=== PATIENT | female | born 1935 ===

== ENCOUNTER 2016-11-13 07:04 | Day surgery (SDC) | payer MEDICARE, OTHER ==
[2013-08-06 08:23] VITALS: BMI 23.4
[2016-11-13 07:37] VITALS: O2SAT 100
[2016-11-13] MEDS ORDERED: Etomidate 20 mg/10ml Inj IV ONE (08:28)
[2016-11-13] MEDS ORDERED: Propofol 10 mg/ml Inj (20 ML) ONE (08:28)
--- NOTE | 2016-11-13 08:28 | CP.SDSHP ---
Same Day Surgery H & P - Previous Medical/Surgical History Cardiac: Hypertension Misc: Other Pain: 4.Moderate Pain - Allergies Allergies: Allergies No Known Allergies Allergy (Verified 11/26/12 11:21) - Physical Exam General Appearance: n Vital Signs: Vital Signs 11/13/16 07:31 Temperature 97.5 F L Pulse Rate 75 Respiratory 19 Rate Blood Pressure 169/70 H O2 Sat by Pulse 100 Oximetry Mental Status: Alert & Oriented x3 Neuro: WNL Heart: Other Lungs: WNL GI: Other - {Optional Preform as Required} Breast: WNL Abdomen: Other Rectal: Other Integument: WNL : WNL Ortho: Other ENT: WNL - Impression Pt. Evaluated Today:Candidate for Anesthesia & Procedure: Yes - Date & Time Time: 08:28 Short Stay Discharge - Short Stay Discharge Admitting Diagnosis/Reason for Visit: DYSPEPSIA Disposition: HOME/ ROUTINE
[2016-11-13] MEDS ORDERED: Lactated Ringer's 500 ML IV ONE ×2 (08:29)
[2016-11-13] MEDS ORDERED: Belladonna-Phenobarbital PO STA (08:29)
[2016-11-13] MEDS ORDERED: Pantoprazole 40 mg EC Tab PO STA (08:30)
[2016-11-13 09:01] VITALS: TEMP 98
[2016-11-13 09:37] VITALS: RESP 15
[2016-11-13] MEDS ORDERED: Belladonna-Phenobarbital PO ONE (09:45)
[2016-11-13] MEDS ORDERED: Pantoprazole 40 mg EC Tab PO ONE (09:45)
[2016-11-13 10:08] VITALS: BP 167/74; PULSE 64
== END 2016-11-13 10:06 | disposition home or self-care (01) ==
LOC: C.ENDO 07:04
PROVIDERS: ATTEND Specialist
DX: B37.81 Candidal esophagitis (principal); K29.00 Acute gastritis without bleeding; I10 Essential (primary) hypertension; K44.9 Diaphragmatic hernia without obstruction or gangrene; K29.80 Duodenitis without bleeding
CPT/HCPCS: 43239; 88305; 88342; J2001; J2704; J7120

== ENCOUNTER 2016-11-29 07:40 | Day surgery (SDC) | payer MEDICARE, OTHER ==
[2013-08-06 08:23] VITALS: BMI 23.4
--- NOTE | 2016-11-29 09:17 | CP.SDSHP ---
Same Day Surgery H & P - History Proposed Procedure: COLONSCOPY Pre-Op Diagnosis: SEE NOTES - Previous Medical/Surgical History Cardiac: Hypertension Pulmonary: Other Endocrine/Metabolic: Other Misc: Other Pain: 4.Moderate Pain - Allergies Allergies: Allergies No Known Allergies Allergy (Verified 11/26/12 11:21) - Physical Exam General Appearance: N Vital Signs: Vital Signs 11/29/16 08:39 Temperature 98.0 F Pulse Rate 77 Respiratory 29 H Rate Blood Pressure 146/56 L O2 Sat by Pulse 99 Oximetry Mental Status: Alert & Oriented x3 Neuro: WNL Heart: Other Lungs: WNL GI: Other - {Optional Preform as Required} Breast: WNL Abdomen: Other Rectal: Other Integument: WNL : WNL Ortho: WNL ENT: WNL - Impression Pt. Evaluated Today:Candidate for Anesthesia & Procedure: Yes - Date & Time Time: Short Stay Discharge - Short Stay Discharge Admitting Diagnosis/Reason for Visit: RECTAL BLEEDING Disposition: HOME/ ROUTINE
[2016-11-29] MEDS ORDERED: Propofol 10 mg/ml Inj (20 ML) ONE ×2 (09:19→09:25)
[2016-11-29] MEDS ORDERED: Glucagon Recombinant 1 mg Inj ONE (09:33)
[2016-11-29] MEDS ORDERED: Belladonna-Phenobarbital PO ONE (09:50)
[2016-11-29 10:18] VITALS: O2SAT 100
[2016-11-29 11:00] VITALS: BP 150/63; PULSE 73; RESP 16; TEMP 97.8
== END 2016-11-29 10:55 | disposition home or self-care (01) ==
LOC: C.ENDO 07:40
PROVIDERS: ATTEND Specialist
DX: K57.30 Diverticulosis of large intestine without perforation or abscess without bleeding (principal); K52.9 Noninfective gastroenteritis and colitis, unspecified; K64.8 Other hemorrhoids; Z86.010 Personal history of colon polyps; I10 Essential (primary) hypertension; E78.5 Hyperlipidemia, unspecified; J45.909 Unspecified asthma, uncomplicated; M81.0 Age-related osteoporosis without current pathological fracture; Z98.42 Cataract extraction status, left eye; Z79.899 Other long term (current) drug therapy